=== PATIENT | male | born 1955 | race Caucasian/White ===

== ENCOUNTER 2018-07-03 18:37 | Emergency (ER) | payer OTHER ==
[~2018-07-03] VITALS: Ht 170.2 cm; Wt 81.7 kg
[2018-07-03] MEDS ORDERED: ADDERALL 30 MG30 MG PO (18:55)
[2018-07-03] MEDS ORDERED: OXYCONTIN15 MG PO (18:55)
[2018-07-03] MEDS ORDERED: KEFLEX500 M1 PO (19:39)
[2018-07-03] MEDS ORDERED: BACTRIM DS TAB1 EACH PO (19:39)
[2018-07-03 19:53] VITALS: BP 164/92
== END 2018-07-03 19:53 | disposition home or self-care (01) ==
LOC: M.ERS 18:37
DX: S62.522A Displaced fracture of distal phalanx of left thumb, initial encounter for closed fracture (principal); L02.512 Cutaneous abscess of left hand; V29.9XXA Motorcycle rider (driver) (passenger) injured in unspecified traffic accident, initial encounter; Y93.89 Activity, other specified; Y92.89 Other specified places as the place of occurrence of the external cause; Y99.8 Other external cause status

== ENCOUNTER 2018-11-02 22:07 | Emergency (ER) | payer OTHER ==
[~2018-11-02] VITALS: Ht 185.4 cm; Wt 120.2 kg
[~2018-11-02 22:07] MED LIST: ADDERALL 30 MG30 MG PO; BACTRIM DS TAB1 EACH PO; KEFLEX500 M1 PO; OXYCONTIN15 MG PO
[2018-11-02] MEDS ORDERED: PRILOSEC 20 MG20 MG (22:17)
[2018-11-02] MEDS ORDERED: ROXYBOND (22:18)
[2018-11-02 22:32] LABS: URINE BILIRUBIN NEGATIVE (Negative); URINE BLOOD TRACE (Negative); URINE CLARITY CLEAR; URINE COLOR YELLOW; URINE GLUCOSE-RANDOM NEGATIVE (Negative); URINE KETONES NEGATIVE (Negative); URINE LEUKOCYTES-REFLEX NEGATIVE (Negative); URINE NITRITE-REFLEX NEGATIVE (Negative); URINE PROTEIN TRACE (Negative); URINE SPECIFIC GRAVITY 1.025 (1.005-1.030); URINE UROBILINOGEN 0.2 E.U./dl (0.2-1.0)
[2018-11-02 23:24] LABS: ANION GAP 5 mmol/L (7-16); BUN 27 mg/dL (7-18); CALCIUM 9.1 mg/dL (8.5-10.1); CHLORIDE 101 mmol/L (98-107); CO2 28 mmol/L (21-32); GLUCOSE 106 mg/dL (70-99); POTASSIUM 4.6 mmol/L (3.5-5.1); SODIUM 134 mmol/L (136-145)
[2018-11-02 23:27] LABS: PROTIME 10.1 Seconds (9.20-11.50)
[2018-11-02 23:27] LABS: ABSOLUTE BASOPHILS 0.1 thou/uL (0.0-0.2); ABSOLUTE LYMPHOCYTES 1.5 thou/uL (0.8-5.3); ABSOLUTE MONOCYTES 1.3 thou/uL (0.0-1.2); ABSOLUTE NEUTROPHILS 10.7 thou/uL (1.6-8.1); BASOPHILS 0.5 %; EOSINOPHILS 0.3 %; HEMOGLOBIN 14.8 gm/dL (14.0-18.0); LYMPHOCYTES 11.3 %; MCH 32.3 pg (26.0-34.0); MCHC 32.8 g/dL (28.0-37.0); MCV 98.6 fL (80.0-100.0); MONOCYTES 9.4 %; NUCLEATED RBCS 0 /100WBC; PLATELET COUNT* 211 thou/uL (150-400); POLYS 78.5 %; RBC 4.56 mil/uL (4.50-6.00); RDW-CV 14.3 % (10.5-14.5); WBC 13.6 thou/uL (4.0-11.0)
[2018-11-02 23:34] LABS: ALBUMIN 2.8 g/dL (3.4-5.0); ALKALINE PHOSPHATASE 93 U/L (46-116); NT-PRO BRAIN NAT PEPTIDE 553 pg/mL (<300); SGOT 25 U/L (15-37); SGPT 26 U/L (30-65); TOTAL BILIRUBIN 0.8 mg/dL (<0.1-1.0); TOTAL PROTEIN 7.4 g/dL (6.4-8.2); TROPONIN-I LEVEL <0.06 ng/mL (<0.06)
[2018-11-03 01:44] VITALS: BP 128/68
--- NOTE | 2018-11-03 11:35 | EKG ---
[place] [address] ELECTROCARDIOGRAM REPORT Name: VIVIAN ROMO 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
== END 2018-11-03 01:45 | disposition short-term general hospital (02) ==
LOC: M.ERS 22:07
PROVIDERS: Emergency Medicine
DX: M00.861 Arthritis due to other bacteria, right knee (principal); J44.9 Chronic obstructive pulmonary disease, unspecified; Z96.651 Presence of right artificial knee joint; W01.0XXA Fall on same level from slipping, tripping and stumbling without subsequent striking against object, initial encounter; Y93.89 Activity, other specified; Y92.89 Other specified places as the place of occurrence of the external cause; Y99.8 Other external cause status

== ENCOUNTER 2021-07-21 20:42 | Inpatient (IN) | payer OTHER ==
[~2021-07-21] VITALS: Ht 185.4 cm; Wt 119.4 kg
[~2021-07-21 20:42] MED LIST changes: +PRILOSEC OTC20 MG PO; +ROXYBOND
[2021-07-21 20:45] VITALS: BP 120/72
[2021-07-21 21:41] LABS: ABSOLUTE BASOPHILS 0.1 thou/uL (0.0-0.2); ABSOLUTE EOSINOPHILS 0.2 thou/uL (0.0-0.7); ABSOLUTE LYMPHOCYTES 1.6 thou/uL (0.8-5.3); ABSOLUTE MONOCYTES 0.5 thou/uL (0.0-1.2); EOSINOPHILS 3.7 %; HEMATOCRIT 50.7 % (42.0-52.0); HEMOGLOBIN 16.9 gm/dL (14.0-18.0); LYMPHOCYTES 29.8 %; MCH 32.1 pg (26.0-34.0); MCHC 33.2 g/dL (28.0-37.0); MCV 96.7 fL (80.0-100.0); MONOCYTES 9.2 %; MPV 8.9 fl. (7.2-11.1); NUCLEATED RBCS 0 /100WBC; PLATELET COUNT* 158 thou/uL (150-400); POLYS 55.3 %; RBC 5.25 mil/uL (4.50-6.00); RDW-CV 14.4 % (10.5-14.5); WBC 5.5 thou/uL (4.0-11.0)
[2021-07-21 21:50] LABS: CALCIUM 8.6 mg/dL (8.5-10.1); POTASSIUM 4.1 mmol/L (3.5-5.1)
[2021-07-21 22:01] LABS: ALBUMIN 3.7 g/dL (3.4-5.0); MAGNESIUM 1.8 mg/dL (1.8-2.4); TOTAL BILIRUBIN 0.5 mg/dL (<0.1-1.0); TOTAL PROTEIN 6.9 g/dL (6.4-8.2)
[2021-07-21 22:55] LABS: PO2 90.1 mmHg (75.0-100.0); pH 7.323 (7.340-7.450)
[2021-07-21 22:57] LABS: PCO2 61.6 mmHg (35.0-45.0)
[2021-07-22] VITALS (7 sets, daily range): BP systolic 102–143; BP diastolic 48–77
--- NOTE | 2021-07-22 09:05 | EKG ---
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: [facility] : 1955 Requested By: Yamila Trent Order Number: [id number] MD: Montez Augustin Measurements Intervals [place] Rate: 66 P: -1 GA: 154 QRS: -10 QRSD: 103 T: -10 QT: 399 QTc: 418 Interpretive Statements Sinus rhythm RSR' in V1 or V2, right VCD or RVH Inferior infarct, age indeterminate Compared to ECG 11/02/2018 23:09:34 no change Electronically Signed On 07-22-2021 9:05:24 CDT by Montez Augustin [email or web address] <ELECTRONICALLY SIGNED> By: Montez Augustin MD, FACC 07/22/21904 24 24 Montez Augsutin MD, [facility] /EPI
[2021-07-22 13:33] LABS: URINE BILIRUBIN NEGATIVE (Negative); URINE BLOOD NEGATIVE (Negative); URINE CLARITY CLEAR; URINE COLOR YELLOW; URINE GLUCOSE-RANDOM NEGATIVE (Negative); URINE KETONES NEGATIVE (Negative); URINE LEUKOCYTES-REFLEX NEGATIVE (Negative); URINE NITRITE-REFLEX NEGATIVE (Negative); URINE PROTEIN NEGATIVE (Negative); URINE SPECIFIC GRAVITY 1.025 (1.005-1.030)
[2021-07-22 13:41] LABS: AMP/METHAMP POSITIVE (Negative); BARBITURATES Negative (Negative); BENZODIAZEPINES POSITIVE (Negative); COCAINE Negative (Negative); METHADONE Negative (Negative); OPIATES POSITIVE (Negative); PCP Negative (Negative); THC POSITIVE (Negative)
[2021-07-22] MEDS ORDERED: XANAX1 MG PO (14:26)
[2021-07-22] MEDS ORDERED: DESYREL150 MG PO (14:26)
[2021-07-22] MEDS ORDERED: FLEXERIL PO (14:31)
[2021-07-22] MEDS ORDERED: TRIAMTERENE/HCT1 CA1 PO (14:35)
[2021-07-22] MEDS ORDERED: COLACE100 MG PO (14:36)
[2021-07-22] MEDS ORDERED: NAPROXEN500 MG PO (14:37)
[2021-07-22 15:32] LABS: BE 2.5 mmol/L (-2 to +3); pH 7.327 (7.340-7.450)
[2021-07-23] VITALS: BP 151/63
[2021-07-23 04:00] VITALS: BP 146/83
[2021-07-23 05:34] LABS: HEMATOCRIT 51.6 % (42.0-52.0); HEMOGLOBIN 16.6 gm/dL (14.0-18.0); MCH 31.7 pg (26.0-34.0); MCHC 32.2 g/dL (28.0-37.0); MCV 98.3 fL (80.0-100.0); MPV 9.9 fl. (7.2-11.1); RBC 5.24 mil/uL (4.50-6.00); RDW-CV 14.5 % (10.5-14.5); WBC 6.9 thou/uL (4.0-11.0)
[2021-07-23 05:54] LABS: ALBUMIN 2.9 g/dL (3.4-5.0); CALCIUM 8.4 mg/dL (8.5-10.1); CREATININE 0.7 mg/dL (0.6-1.3); MAGNESIUM 1.9 mg/dL (1.8-2.4); POTASSIUM 4.1 mmol/L (3.5-5.1); TOTAL BILIRUBIN 0.8 mg/dL (<0.1-1.0); TOTAL PROTEIN 6.4 g/dL (6.4-8.2)
[2021-07-23 07:51] VITALS: BP 141/74
[2021-07-23 12:00] VITALS: BP 168/79
--- NOTE | 2021-07-23 15:27 | 2DMMODE ---
[place] [address] 2 D/M-MODE ECHOCARDIOGRAM Name: VIVIAN ROMO Room: [address] [place]#: [id number] Admission: 07/23/21 Attend Phys: Sammi Abreu, Discharge: Date of : 57 Date of Service: 07/23/21 1527 Report #: [id number] THIS REPORT FOR: cc: FAM - No family physician/PCP FAM - No family physician/PCP Montez Augustin MD [facility] ~ APPROVED REPORT Study performed: 07/23/2021 14:30:21 EXAM: Comprehensive 2D, Doppler, and color-flow Echocardiogram Patient Location: In-Patient Room #: 108 Status: routine BSA: 2.42 HR: 58 bpm BP: 141/74 mmHg Rhythm: NSR Other Information Study Quality: Good Indications Abnormal ECG 2D Dimensions IVSd: 11.79 (7-11mm) LVOT Diam: 22.96 (18-24mm) LVDd: 53.85 mm PWd: 10.15 (7-11mm) Ascending Ao: 39.42 (22-36mm) LVDs: 28.48 (25-40mm) Volumes Left Atrial Volume (Systole) LA ESV Index: 27.00 mL/m2 Aortic Valve AoV Peak Ruben.: 1.66 m/s AO Peak Gr.: 11.05 mmHg LVOT Max P.40 mmHg AO Mean Gr.: 5.46 mmHg LVOT Mean P.22 mmHg LVOT Max V: 1.36 m/s AO V2 VTI: 31.07 cm LVOT Mean V: 0.81 m/s LANA (VTI): 3.16 cm2 LVOT V1 VTI: 23.73 [place] [address] 2 D/M-MODE ECHOCARDIOGRAM Name: VIVIAN ROMO Room: [address] [place] ..#: [id number] Admission: 07/23/21 Attend Phys: Sammi Abreu, Discharge: Date of : 57 Date of Service: 07/23/21 1527 Report #: [id number] E/A Ratio: 0.95 MV Decel. Time: 236.20 ms MV E Max Ruben.: 0.91 m/s MV PHT: 68.50 ms MVA (PHT): 3.21 cm2 TDI E/Lateral E': 6.07 E/Medial E': 7.58 Medial E' Ruben.: 0.12 m/s Lateral E' Ruben.: 0.15 m/s Pulmonary Valve PV Peak Ruben.: 1.20 m/s PV Peak Gr.: 5.74 mmHg Tricuspid Valve RAP Estimate: 5.00 mmHg TR Peak Gr.: 32.35 mmHg RVSP: 37.00 mmHg PA Pressure: 37.00 mmHg Left Ventricle The left ventricle is normal size. There is normal LV segmental wall motion. There is normal left ventricular wall thickness. Left ventricular systolic function is normal. The left ventricular ejection fraction is within the normal range. LVEF is 55-60%. The left ventricular diastolic function is normal. Right Ventricle Right ventricle is dilated. The right ventricular systolic function is normal. Atria The left atrium size is normal. Right atrium is dilated. Aortic Valve Mild aortic valve sclerosis. No aortic regurgitation is present. There is no aortic valvular stenosis. Mitral Valve The mitral valve is normal in structure. Trace mitral regurgitation. No evidence of mitral valve stenosis. Tricuspid Valve The tricuspid valve is normal in structure. Trace tricuspid regurgitation. estimated pa pressure 40 [place] [address] 2 D/M-MODE ECHOCARDIOGRAM Name: VIVIAN ROMO Room: [address]#: [id number] Admission: 07/23/21 Attend Phys: Sammi Abreu, Discharge: Date of : 57 Date of Service: 07/23/21 1527 Report #: [id number] The pulmonary valve is normal in structure. There is no pulmonic valvular regurgitation. Great Vessels The aortic root is normal in size. IVC is normal in size and collapses >50% with inspiration. Pericardium There is no pericardial effusion. <Conclusion> LVEF is 55-60%. Right ventricle is dilated. Mild aortic valve sclerosis. Trace tricuspid regurgitation. estimated pa pressure 40 mm Hg <ELECTRONICALLY SIGNED> By: Montez Augustin MD, FACC 07/23/21 1527 1527 1527 Montez Augustin MD, FACC /INF
[2021-07-23 16:00] VITALS: BP 159/53
[2021-07-23 20:00] VITALS: BP 177/90
[2021-07-24 00:50] VITALS: BP 134/68
[2021-07-24 04:32] VITALS: BP 166/87
[2021-07-24 07:27] VITALS: BP 157/91
[2021-07-24 07:42] VITALS: BP 137/61
[2021-07-24] MEDS ORDERED: AUGMENTIN 875-1 EACH PO (10:57)
[2021-07-24 11:16] VITALS: BP 137/61
== END 2021-07-24 12:23 | disposition home or self-care (01) | DRG 177 ==
LOC: M.ERS 20:42 → M.ORTHSURG 23:38 → M.TBA-ER 23:38 → M.ORTHSURG 07-22 06:23
PROVIDERS: Emergency Medicine; ADMIT Internal Medicine; ATTEND Internal Medicine
DX: J15.6 Pneumonia due to other Gram-negative bacteria (principal); G92 Toxic encephalopathy; J96.21 Acute and chronic respiratory failure with hypoxia; J96.22 Acute and chronic respiratory failure with hypercapnia; J44.0 Chronic obstructive pulmonary disease with (acute) lower respiratory infection; I10 Essential (primary) hypertension; T42.4X1A Poisoning by benzodiazepines, accidental (unintentional), initial encounter; Z96.651 Presence of right artificial knee joint; R91.1 Solitary pulmonary nodule; F11.10 Opioid abuse, uncomplicated; Z20.822 Contact with and (suspected) exposure to COVID-19; Z87.891 Personal history of nicotine dependence; Z79.899 Other long term (current) drug therapy; Y92.89 Other specified places as the place of occurrence of the external cause